=== PATIENT | male | born 1940 | race Caucasian/White ===

== ENCOUNTER 2016-06-06 14:01 | Inpatient (IN) | payer OTHER ==
[2016-06-06] MEDS ORDERED: SODIUM CHLORIDE IV ONE (14:17)
--- NOTE | 2016-06-06 14:21 | PROVIDER DOCUMENTATION ---
HPI-General Adult - General Chief Complaint: General Adult Stated Complaint: In and out of conciousness per family Time Seen by Provider: 06/06/16 14:09 Source: patient, EMS Allergies/Adverse Reactions: Patient Allergies Allergy/AdvReac Type Severity Reaction Status Date / Time No Known Allergies Allergy Verified 03/10/16 09:05 Home Medications: Amlodipine Besylate/Benazepril [Lotrel 10/20 mg Capsule] 1 each PO DAILY Bicalutamide 50 mg PO DAILY 03/10/16 Chlorthalidone 25 mg PO DAILY 03/10/16 Esomeprazole [Nexium] 40 mg PO DAILY 03/10/16 Glyburide/Metformin HCl [Glucovance 2.5/500 mg Tablet] 1 each PO DAILY 03/10/16 LISINOpril [Prinivil] 20 mg PO DAILY 03/10/16 Metoprolol Tartrate [Lopressor] 100 mg PO DAILY 03/10/16 Niacin 500 mg PO DAILY 03/10/16 Simvastatin 80 mg PO DAILY 03/10/16 - History of Present Illness -Gen Adult Nature of Presenting Problems: Pt has a hx of prostate problems has had radiation and surgery leaving him with ileostomy and colostomy . Pt family at bedside reports pt felt bad yesterday and reports today had hard chills and was passing in and out. Upon arrival pt is alert and oriented x 3 Location of Pain/Injury: reports: none Quality of Pain: reports: none Severity: reports: mild Onset/Duration: reports: last night Timing: reports: still present Associated Symptoms: reports: fever/chills, syncope Similar Symptoms Previously?: No Recently seen or treated by another doctor?: No Review of Systems - Adult - REVIEW OF SYSTEMS - ADULT Constitutional: reports: chills. denies: fever, fatique Eyes: reports: no symptoms reported Ears, Nose, Mouth & Throat: reports: no symptoms reported Cardiovascular: reports: syncope. denies: chest pain, edema, irregular heart rate, orthopnea Respiratory: reports: no symptoms reported Gastrointestinal: reports: no symptoms reported Genitourinary: reports: no symptoms reported Musculoskeletal: reports: no symptoms reported Integumentary: reports: no symptoms reported Neurological: reports: syncope. denies: loss of balance, numbness, tremors Psychiatric: reports: no symptoms reported Endocrine: reports: no symptoms reported Hematologic/Lymphatic: reports: no symptoms reported Allergic/Immunologic: reports: no symptoms reported All Other Systems: Reviewed and Negative Past History - Adult - PAST MEDICAL HISTORY-ADULT Review of Records: reports: Nursing Assessment Review, Medications Reviewed Major Childhood Illnesses: reports: denies history Cardiovascular: reports: HTN Genitourinary: reports: other (prostate) Endocrine/Immune: reports: Diabetes - IMMUNIZATION STATUS Childhood Immunizations: See Nurse Assessment Flu Vaccine: See Nurse Assessment Physical Exam-General - PHYSICAL EXAM-ADULT Initial Vital Signs Reviewed: Yes - CONSTITUTIONAL General Appearance: appears well, alert, no apparent distress - EYES Eyes: PERRL/EOMI, pink conjunctivae - HEAD, EARS, NOSE, MOUTH & THROAT HENMT: normocephalic/atraumatic, moist mucous membranes, normal ENT inspection - NECK Neck: non-tender, full range of motion, normal inspection - RESPIRATORY Respiratory: chest non-tender, lungs clear, normal breath sounds - CARDIOVASCULAR Cardiovascular: normal peripheral pulses, regular rate, rhythm, no edema - GASTROINTESTINAL (ABDOMEN) Abdominal Exam: non tender, soft, no organomegaly, no pulsatile mass, other ( ielostomy colostomy) - LYMPHATIC Lymphatic: no adenopathy - MUSCULOSKELETAL Back Exam: normal inspection, no CVA tenderness, no vertebral tenderness Extremity: normal range of motion, non-tender, normal gait - SKIN Integumentary: normal color, normal turgor, warm/dry - NEUROLOGIC Neurologic: grossly normal, no motor/sensory deficits - PSYCHIATRIC Psych/Mental Status: normal mood/affect, normal thought content, normal thought process, oriented x 3 Progress - PLAN OF CARE/RESULTS Progress/Plan/Lab Results: Orders Category Date Time Status BLOOD CULTURE [BLDCUL] Stat Lab 06/06/16 14:16 Uncollected CBC WITH ELECTRONIC DIFF [HEME] Stat Lab 06/06/16 14:15 Ordered CMP [COMPREHENSIVE METABOLIC PANEL] [CHEM] Stat Lab 06/06/16 14:15 Uncollected URINALYSIS W/POSS RFLX CULT [URINALYSIS] Stat Lab 06/06/16 14:15 Uncollected 0.9% Sodium Chloride Inj [Ns] 999 ml Med 06/06/16 14:17 Active IV 500 mls/hr Vital Signs - 24 hr 06/06/16 14:02 Temperature 97.7 F Pulse Rate 91 H Respiratory 20 Rate Blood Pressure 94/49 Laboratory Tests 06/06/16 06/06/16 06/06/16 14:24 14:24 14:26 WBC 17.91 H RBC 3.60 L Hgb 11.3 L Hct 32.7 L MCV 90.8 MCH 31.4 H MCHC 34.6 RDW Std Deviation 12.3 Plt Count 378 MPV 9.5 Immature Gran % (Auto) 1.5 H Neut % (Auto) 96.0 H Lymph % (Auto) 1.3 L [place] % (Auto) 1.1 L Eos % (Auto) 0.0 Baso % (Auto) 0.1 Immature Gran # (Auto) 0.27 H Neut # 17.20 H Lymph # 0.23 L [place] # 0.20 Eos # 0.00 Baso # 0.01 Sodium 133 L Potassium 3.1 L Chloride 94 L Carbon Dioxide 15 L Anion Gap 24 BUN 30 H Creatinine 1.7 H Estimated GFR/1.73 m2 39 BUN/Creatinine Ratio 18 Glucose 86 Calculated Osmolality 272 Calcium 10.1 Total Bilirubin 0.44 AST 22 ALT 5 L Alkaline Phosphatase 178 H Total Protein 7.1 Albumin 2.4 L Globulin 4.7 Albumin/Globulin Ratio 0.5 Urine Source CLEAN CATCH Urine Color ORANGE Urine Turbidity TURBID Urine pH 8.5 Ur Specific [place] 1.017 Urine Protein >600 A Ur Glucose (Stick) NEGATIVE Ur Ketones (Stick) NEGATIVE Urine Blood NEGATIVE Urine Nitrite NEGATIVE Urine Bilirubin NEGATIVE Urobilinogen Dipstick NORMAL Urine Leukocytes LARGE A Urine WBC (Auto) TNTC A Urine RBC (Auto) 20-40 A U Epithel Cells (Auto) <10 Urine Bacteria (Auto) 4+ Urine Crystals TRIPLE PHOS PRESENT Small Round Cells Not Reportable Urine Casts NONE SEEN Urine Yeast-like Cells NONE SEEN - CONSULTS/PCP/HOSPITALIST Notification #1 *Consult/PCP/Hospitalist*: Time Discussed: 15:57 Consult Disposition: Will see in ED, Admit Departure - Departure Time of Disposition Order: 15:56 DIAGNOSIS: UTI (urinary tract infection) Qualifiers: Urinary tract infection type: site unspecified Hematuria presence: without hematuria Qualified Code(s): N39.0 - Urinary tract infection, site not specified Sepsis Qualifiers: Sepsis type: sepsis due to unspecified organism Qualified Code(s): A41.9 - Sepsis, unspecified organism Disposition: ADMITTED INPATIENT 09 Certified Medical Emergency: Emergent Condition: Stable Attestation - Scribe Verification/Attestation Scribe:: Escobar Franco Acting as Scribe for:: Ozzie Bullard Scribe documention review:: This chart was documented by a scribe and accurately reflects the service the provider performed and the decisions made by the provider.
[2016-06-06 14:41] LABS: URINE SOURCE CLEAN CATCH
[2016-06-06 14:47] LABS: BASO% 0.1 % (0.0-0.8); HEMATOCRIT 32.7 % (42.0-52.0); HEMOGLOBIN 11.3 g/dL (14.0-18.0); IMM GRAN# 0.27 X1000 (0.0-0.04); IMM GRAN% 1.5 % (0.0-0.5); LYMPH# 0.23 X1000 (1.2-3.4); LYMPH% 1.3 % (20.5-51.1); MANUAL DIFF NEEDED? NO; MCH 31.4 PG (27-31); MCHC 34.6 g/dL (33-37); MCV 90.8 FL (81-99); MONO% 1.1 % (1.7-9.3); MPV 9.5 FL (7.4-10.4); PLT 378 X1000 (130-400)
[2016-06-06 14:50] LABS: BILIRUBIN URINE NEGATIVE (NEGATIVE); BLOOD URINE NEGATIVE (NEGATIVE); COLOR ORANGE; GLUCOSE URINE NEGATIVE (NEGATIVE); LEUKOCYTES URINE LARGE (NEGATIVE); NITRITE URINE NEGATIVE (NEGATIVE); PH URINE 8.5; PROTEIN URINE >600 mg/dL (NEGATIVE); SP GRAVITY URINE 1.017; TURBIDITY URINE TURBID (CLEAR); UROBILINOGEN URINE NORMAL (NORMAL)
[2016-06-06 14:51] LABS: UR EPITHELIAL CELLS <10 /HPF (<10); URINE BACTERIA 4+ /HPF; URINE CULTURE NEEDED? YES; URINE MICRO REVIEW NEEDED? YES; URINE RBC 20-40 /HPF (<10); URINE WBC TNTC /HPF (<10)
[2016-06-06 15:05] LABS: URINE CRYSTALS TRIPLE PHOS PRESENT
[2016-06-06 15:06] LABS: ALBUMIN 2.4 g/dL (3.5-5.0); CALCIUM 10.1 mg/dL (8.8-10.2); POTASSIUM 3.1 mmol/L (3.5-5.1); TOTAL BILIRUBIN 0.44 mg/dL (0.20-1.00); TOTAL PROTEIN 7.1 g/dL (6.3-8.3)
[2016-06-06 15:10] LABS: URINE CASTS NONE SEEN
[2016-06-06] MEDS ORDERED: GENTAMICIN 60 MG in NS 50 ML IV ONE (15:10)
[2016-06-06] MEDS ORDERED: NS 1,000 ML ONE (15:47)
[2016-06-06] MEDS ORDERED: NS 500 ML ONE (15:59)
[2016-06-06] MEDS ORDERED: NS 500 ML IV ONE (16:02)
[2016-06-06] MEDS ORDERED: ZOFRAN IV PRN (16:50)
--- NOTE | 2016-06-06 16:57 | Diag Imaging Result Document ---
PROCEDURE NAME: CHEST-PORTABLE - 06/06/2016 PORTABLE CHEST X-RAY: COMPARISON: 03/10/2016, 12/23/2011. FINDINGS: Stable coarse peripheral interstitial opacities compatible with pulmonary fibrosis. Heart size remains top normal. No new infiltrates. IMPRESSION: No change from prior.
[2016-06-06] MEDS: NS 1,000 ML IV SCH ×2 (17:00→23:30)
[2016-06-06] MEDS ORDERED: NS 1,000 ML IV SCH (17:45)
[2016-06-06] MEDS ORDERED: KLOR-CON PO ONE (17:52)
[2016-06-06] MEDS: LEVOPHED 8 MG in D5 1/2 NS 250 ML IV SCH (18:00)
--- NOTE | 2016-06-06 18:17 | HISTORY AND PHYSICAL ---
CHIEF COMPLAINT: Generalized weakness and altered mental status, as per family HISTORY OF PRESENT ILLNESS: Mr. Meyer is a 75-year-old male with a past medical history of prostate cancer with end-colostomy and hypertension, who was brought in by the family because of generalized weakness and altered mental status as well. Apparently yesterday this patient was normal but today he started having chills and subjective fever and apparently, as per the family, he had some kind of mental changes; this is why they decided to bring the patient to the emergency department. In the emergency department he was evaluated and he was completely alert and oriented x3. No focal neurological deficits. We found out in the emergency department that this patient has a severe urinary tract infection. Also the blood pressure has been low even though he has been getting fluid resuscitation. This is why we decided to admit this patient to the intensive care unit on the diagnosis of septic shock. This patient will be on IV fluids and pressors and broad spectrum antibiotics. REVIEW OF SYSTEMS: General: Chills, subjective fever. No weight loss. The rest of the 14 point review of systems as per HPI. PAST MEDICAL HISTORY: Hypertension, prostate cancer, questionable diabetes. PAST SURGICAL HISTORY: Colostomy and Daniel's pouch and an ileal conduit on the right side. ALLERGIES: No known allergies. SOCIAL HISTORY: He denies at this moment alcohol, tobacco, and drugs. PHYSICAL EXAMINATION: VITAL SIGNS: Temperature 97.7 degrees, pulse 74, blood pressure 55/36, oxygen saturation 99 on room air, respiratory rate 20. GENERAL: This patient looks chronically ill, cachectic. HEENT: Head normocephalic. No trauma. PERRLA. NECK: Supple. No JVD. No masses. CHEST: Clear to auscultation. No wheezing. No rales. ABDOMEN: He has a colostomy bag on the right side of the abdomen that does not look infected. The abdomen is soft. It is tender to palpation in the suprapubic area. EXTREMITIES: No edema. No clubbing. No cyanosis. Muscle mass decreased. NEUROLOGICAL: The patient was alert and oriented x3. No focal neurological deficits. LABORATORY: WBC 17.9, hemoglobin 11.3, hematocrit 32.7, platelet 378,000. Sodium 133, potassium 4.1, chloride 94, bicarbonate 15, BUN 30, creatinine 1.7. Urinalysis: Urine leukocytes large. Urine WBC too numerous to count. Urine red blood cells 20-40. Bacteria 4+. ASSESSMENT AND PLAN: 1. Septic shock. This patient will be admitted to the ICU. We will place this patient on IV fluids, broad-spectrum antibiotics, vasopressors. Continue monitoring. We are going to hold the blood pressure medication for now because this patient is having low blood pressure. We will get a urine culture and also blood culture. 2. Hypertension. At this moment this patient is hypotensive. We will hold the blood pressure medication. 3. History of prostate cancer with colostomy, to monitor. 4. Questionable diabetes. The blood sugar is normal today. Will monitor.
[2016-06-06] MEDS: PROTONIX IV SCH (18:24)
[2016-06-06] MEDS: SODIUM CHLORIDE 0.9% INJ SCH (18:24)
[2016-06-06] MEDS: ZOSYN 3.375 GM/NS 50 ML IV SCH ×2 (18:24→23:30)
[2016-06-06] MEDS: HEPARIN SUBQ SCH (20:42)
[2016-06-07] MEDS: NS 1,000 ML IV SCH ×3 (03:29→17:04)
[2016-06-07] MEDS: TYLENOL PO PRN (05:43)
[2016-06-07] MEDS: ZOSYN 3.375 GM/NS 50 ML IV SCH ×4 (05:43→23:45)
[2016-06-07] MEDS: LEVOPHED 8 MG in D5 1/2 NS 250 ML IV SCH ×2 (06:11→18:02)
[2016-06-07] MEDS ORDERED: VANCOMYCIN IV PER PHARMACY MISC SCH (06:15)
[2016-06-07 06:34] LABS: BASO% 0.5 % (0.0-0.8); EOS# 0.35 X1000 (0.0-0.7); EOS% 3.3 % (0.0-10.0); HEMOGLOBIN 12.3 g/dL (14.0-18.0); IMM GRAN# 0.08 X1000 (0.0-0.04); IMM GRAN% 0.8 % (0.0-0.5); LYMPH# 1.83 X1000 (1.2-3.4); LYMPH% 17.2 % (20.5-51.1); MANUAL DIFF NEEDED? YES; MCH 30.8 PG (27-31); MCHC 33.2 g/dL (33-37); MCV 92.7 FL (81-99); MONO# 1.49 X1000 (0.11-0.59); MPV 9.5 FL (7.4-10.4); NEUT% 64.2 % (42.2-75.2); PLT 377 X1000 (130-400); RBC 3.99 XMIL (4.7-6.1)
[2016-06-07 06:46] LABS: BANDS 12 % (0-1); LYMPHS 20 % (21-51); MONO 12 % (1-9)
[2016-06-07 06:58] LABS: ALBUMIN 2.7 g/dL (3.5-5.0); CALCIUM 9.7 mg/dL (8.8-10.2); POTASSIUM 4.5 mmol/L (3.5-5.1); TOTAL BILIRUBIN 0.56 mg/dL (0.20-1.00); TOTAL PROTEIN 7.2 g/dL (6.3-8.3)
[2016-06-07] MEDS ORDERED: VANCOMYCIN 2,000 MG in NS 500 ML IV ONE (08:00)
[2016-06-07] MEDS: PRAVACHOL PO SCH (09:16)
[2016-06-07] MEDS: NIACIN PO SCH (09:16)
[2016-06-07] MEDS: HEPARIN SUBQ SCH ×2 (09:16→20:40)
--- NOTE | 2016-06-07 10:22 | PROGRESS NOTE ---
DATE: 06/07/2016 SUBJECTIVE: This patient states that he is feeling much better. He is tolerating p.o. He denies any nausea, vomiting, fever, or chills, but he said that he has been sweating a lot. OBJECTIVE: Vital Signs: Temperature 97.9 degrees, pulse 78, respiratory rate 23, blood pressure 87/50, oxygen saturation 97% on room air. HEENT: Head normocephalic. No trauma. PERRLA. Neck: Supple. No JVD. No masses. Chest: Clear to auscultation. No wheezing. No rales. Abdomen: He has a colostomy bag on the right side of the abdomen that does not look infected. The abdomen is soft. It is tender to palpation in the suprapubic area. Extremities: No edema. No clubbing. No cyanosis. Muscle mass decreased. Neurological: The patient is alert and oriented x3. No focal neurological deficits. LABORATORY: WBC 10.6, hemoglobin 12.3, hematocrit 37, platelets 377,000, bands 12. Sodium 133, potassium 4.5, chloride 97, bicarbonate 14, BUN 32, creatinine 1.8, glucose 67, calcium 9.7, albumin 2.7. ASSESSMENT AND PLAN: 1. Septic shock. This patient is still in the ICU. This patient is still on vasopressors. We will continue with the broad-spectrum antibiotics. We have a positive urine culture that showed gram-negative rods. Blood culture has been negative so far. 2. Hypertension. At this moment this patient is hypotensive. The blood pressure medication was held. He is on pressors. 3. History of prostate cancer with colostomy. Apparently this patient also has metastasis, to monitor. 4. Questionable diabetes. The blood sugar today is normal. Will monitor. 5. Deconditioning. This patient looks cachectic and chronically ill. I will put this patient on physical therapy and I will ask the optical instruments supervisor to evaluate this patient.
[2016-06-07] MEDS ORDERED: CALMOSEPTINE OINTMENT TOP PRN (11:07)
[2016-06-07] MEDS: PROTONIX IV SCH (17:04)
[2016-06-07] MEDS: SODIUM CHLORIDE 0.9% INJ SCH (17:04)
[2016-06-08] MEDS: NS 1,000 ML IV SCH ×3 (04:26→20:05)
[2016-06-08] MEDS: ZOSYN 3.375 GM/NS 50 ML IV SCH ×4 (05:30→22:47)
[2016-06-08 08:18] LABS: BASO% 0.1 % (0.0-0.8); EOS# 0.11 X1000 (0.0-0.7); EOS% 0.7 % (0.0-10.0); HEMATOCRIT 29.5 % (42.0-52.0); HEMOGLOBIN 10.1 g/dL (14.0-18.0); IMM GRAN# 0.18 X1000 (0.0-0.04); IMM GRAN% 1.2 % (0.0-0.5); LYMPH# 0.84 X1000 (1.2-3.4); LYMPH% 5.4 % (20.5-51.1); MANUAL DIFF NEEDED? YES; MCH 30.9 PG (27-31); MCHC 34.2 g/dL (33-37); MCV 90.2 FL (81-99); MONO# 0.74 X1000 (0.11-0.59); MONO% 4.7 % (1.7-9.3); MPV 9.4 FL (7.4-10.4); NEUT% 87.9 % (42.2-75.2); PLT 223 X1000 (130-400); RBC 3.27 XMIL (4.7-6.1)
[2016-06-08 08:21] LABS: CALCIUM 8.7 mg/dL (8.8-10.2); POTASSIUM 3.3 mmol/L (3.5-5.1)
[2016-06-08] MEDS: HEPARIN SUBQ SCH ×2 (09:08→20:05)
[2016-06-08] MEDS: NIACIN PO SCH (09:08)
[2016-06-08] MEDS: PRAVACHOL PO SCH (09:08)
[2016-06-08] MEDS ORDERED: KLOR-CON PO ONE (09:11)
[2016-06-08 09:41] LABS: BANDS 8 % (0-1); LYMPHS 6 % (21-51); MONO 2 % (1-9)
[2016-06-08] MEDS: TYLENOL PO PRN ×2 (11:45→17:52)
--- NOTE | 2016-06-08 11:52 | PROGRESS NOTE ---
DATE: 06/08/2016 SUBJECTIVE: This patient states that he is feeling much better. He is tolerating p.o. He is able to ambulate with assistance. He denies nausea, vomiting, diarrhea, or constipation. OBJECTIVE: Vital Signs: Temperature 97 degrees, pulse 71, respiratory rate 15, blood pressure 109/57, and oxygen saturation 99 on room air. HEENT: Head normocephalic. No trauma. PERRLA. Neck: Supple. No JVD. No masses. Chest: Clear to auscultation. No wheezing. No rales. Abdomen: He has a colostomy bag on the right side of the abdomen that does not look infected. The abdomen is soft. It is tender to palpation in the suprapubic area. Extremities: No edema. No clubbing. No cyanosis. Muscle mass decreased. Neurological Examination: The patient is alert and oriented x3. No focal neurological deficits. Laboratory: WBC 15.6, hemoglobin 10.1, hematocrit 29.5, platelets 233,000. Sodium 135, potassium 3.3, chloride 103, bicarbonate 18, BUN 29, creatinine 1.5, and calcium 8.7. ASSESSMENT AND PLAN: 1. Septic shock. This patient is still in the intensive care unit. He is still on vasopressors but he is getting better. We will continue with broad spectrum antibiotics. We have a positive urine culture that showed gram-negative rods. Blood culture has been negative so far. 2. Hypertension. At this moment, this patient is borderline hypotensive. We will continue monitoring. 3. History of prostate cancer with colostomy. Apparently, this patient also has metastases. We will monitor. 4. Questionable diabetes. Continue monitoring. We will monitor. 5. Deconditioning. This patient looks cachectic and chronically ill. This patient is on physical therapy. We will continue monitoring.
[2016-06-08] MEDS: PROTONIX IV SCH (16:46)
[2016-06-08] MEDS: SODIUM CHLORIDE 0.9% INJ SCH (16:46)
[2016-06-08] MEDS: NORCO-7.5 PO PRN (20:42)
[2016-06-09] MEDS: ZOSYN 3.375 GM/NS 50 ML IV SCH (05:12)
[2016-06-09] MEDS: NS 1,000 ML IV SCH ×3 (05:13→17:49)
[2016-06-09 05:24] LABS: BASO% 0.1 % (0.0-0.8); EOS# 0.09 X1000 (0.0-0.7); HEMOGLOBIN 9.6 g/dL (14.0-18.0); IMM GRAN# 0.14 X1000 (0.0-0.04); IMM GRAN% 1.5 % (0.0-0.5); LYMPH# 0.48 X1000 (1.2-3.4); LYMPH% 5.2 % (20.5-51.1); MANUAL DIFF NEEDED? YES; MCH 30.6 PG (27-31); MCHC 34.3 g/dL (33-37); MCV 89.2 FL (81-99); MONO# 0.35 X1000 (0.11-0.59); MONO% 3.8 % (1.7-9.3); MPV 9.8 FL (7.4-10.4); NEUT% 88.4 % (42.2-75.2); PLT 178 X1000 (130-400); RBC 3.14 XMIL (4.7-6.1)
[2016-06-09 06:00] LABS: BANDS 14 % (0-1); LYMPHS 4 % (21-51); MONO 2 % (1-9)
[2016-06-09 06:12] LABS: CALCIUM 7.8 mg/dL (8.8-10.2); POTASSIUM 3.7 mmol/L (3.5-5.1)
[2016-06-09] MEDS ORDERED: VANCOMYCIN 1,500 MG in NS 250 ML IV SCH (08:00)
[2016-06-09] MEDS: PRAVACHOL PO SCH (08:04)
[2016-06-09] MEDS: HEPARIN SUBQ SCH ×2 (08:04→22:13)
[2016-06-09] MEDS: NIACIN PO SCH (08:05)
[2016-06-09] MEDS: NORCO-7.5 PO PRN ×4 (09:16→22:34)
[2016-06-09] MEDS: TYLENOL PO PRN (11:06)
[2016-06-09] MEDS: MAXIPIME 2 GM/NS 100 ML IV SCH ×2 (12:09→22:13)
--- NOTE | 2016-06-09 13:12 | PROGRESS NOTE ---
DATE: 06/09/2016 SUBJECTIVE: This patient states that he is feeling better. Today, he has been having chills. I will ask for a new set of blood culture and urine culture. He denies nausea, vomiting, diarrhea, constipation. He is not on pressors at this moment. His vital signs are stable. I will transfer this patient to the medical floor. OBJECTIVE: Vital Signs: Temperature 97.5 degrees, pulse 88, respiratory rate 19, blood pressure 133/70. O2 saturation 98% on room air. HEENT: Head normocephalic. No trauma. PERRLA. Neck: Supple. No JVD. No masses. Chest: Clear to auscultation. No wheezing. No rales. Abdomen: He has a colostomy bag on the right side of the abdomen that does not look infected. The abdomen is soft. Mild tenderness to palpation in the suprapubic area. Extremities: No edema. No clubbing. No cyanosis. Muscle mass decreased. Neurological: The patient is alert and oriented x3. No focal neurological deficits. LABORATORY: WBC 9.2, hemoglobin 9.6, hematocrit 28. Sodium 131, potassium 3.7, chloride 103, bicarbonate 16, BUN 25, creatinine 1.3. Calcium 7.8. Glucose 93. ASSESSMENT AND PLAN: 1. Septic shock, resolved. This patient will be transferred to the medical floor. He is not on vasopressors. I will consult the Infectious Disease Department. He has a positive blood culture result for a Staphylococcus aureus and Proteus vulgaris and also he has any urine culture that is positive for Providencia rustigianii. We will continue with the same management for now. 2. Hypertension. At this moment the blood pressure is controlled. We will continue monitoring. 3. History of prostate cancer with colostomy. Apparently this patient also has metastasis. We will monitor. 4. Deconditioning. This patient looks cachectic and chronically ill. I will continue this patient on physical therapy. We will continue monitoring.
--- NOTE | 2016-06-09 14:08 | CONSULTATION ---
DATE OF CONSULTATION: 06/09/2016 CONCLUSION: The patient has a Providencia urinary tract infection and a Staph aureus and Proteus bacteremia. The exact origin of the bacteremia is uncertain to me at this time. Since the urine isolate is different from the blood isolates, the blood isolates did not arise from the urinary tract. The patient does have some interstitial opacities, but the radiologist feels this is most compatible with pulmonary fibrosis rather than pneumonia. The patient does not have any long-term intravenous access device in place such as a Port-A-Cath or a PICC, and he got ill at home before he came in the hospital, so there was not an IV site that could be the origin. RECOMMENDATIONS: I have switched the patient from his current antibiotics to cefepime 2 g IV every 8 hours. In addition, I have ordered a CT scan of the abdomen and pelvis to see if we can find some abnormality that would predispose the patient to become bacteremic. DISCUSSION: The patient was initially admitted to the hospital with an altered mental status. He was having chills and was very weak. His blood cultures are positive for an oxacillin-sensitive Staph aureus and Proteus and the urine culture is positive for Providencia. In talking to the patient now, he has not been having any cough. He did not have any abdominal pain. LABORATORY STUDIES: Show a CBC with a white count of 9210, hemoglobin 9.6, and platelet count 178,000. Creatinine is 1.3. The GFR is 54. AST is 49. Chest x-ray shows interstitial opacities compatible with pulmonary fibrosis. REVIEW OF SYSTEMS: Eyes and ears: Patient denies difficulty hearing or seeing. Neck: No stiffness. Respiratory: No cough or dyspnea. Cardiovascular: No chest pain or palpitations. GI: No nausea or vomiting. No abdominal pain. The patient does have a colostomy. : Patient does have an ileal conduit. Endocrine: The patient tells me that he does have diabetes, but he does not have thyroid disease. Neurologic: No motor or sensory deficit. No seizure. Integument: No rash. The remainder of the patient's review of systems was completed and was negative. PAST MEDICAL HISTORY: Previous hospitalizations and operations: The patient has had a total shoulder arthroplasty and 2 laminectomies. He had surgery for prostate cancer, including cryosurgery and radiation therapy. He also has been admitted once for atelectasis and pneumonia. Medical Diseases: Positive for prostate cancer, diabetes mellitus and hypertension. Hyperlipidemia. Infectious disease history: Positive for pneumonia. Negative for UTI. FAMILY HISTORY: Positive for hypertension and myocardial infarction. SOCIAL HISTORY: [place] lives [place]. Does not have any pets. He is . He does not smoke cigarettes. He is retired. He does drink alcoholic beverages. He does not abuse drugs. ALLERGIES: The computer record on the patient indicates that he does not have any drug allergies. HOME MEDICATIONS: Include the following: Pravastatin, niacin, metoprolol, lisinopril, glyburide, Nexium, chlorthalidone, amlodipine/benazepril, bicalutamide. PHYSICAL EXAMINATION: Vital Signs: Temperature is 97.5, pulse 88, respirations 19, blood pressure 133/70. Generally: This is an ill-appearing, elderly male. He is in no acute distress. HEENT: No drainage noted from the nose or ears. The patient is edentulous. There were no white patches in the mouth. Neck: No meningismus. Thorax: No increased AP diameter. Lungs: Clear to auscultation. Cardiovascular: Heart rate is regular. Peripheral pulses were diminished. Abdomen: Soft and nontender. The patient has an ileal conduit and colostomy in place. Both are functional. Neurologic: Patient is awake. He can move his extremities. There is no tremor. His sensation was intact to touch. His memory, as regarding his medical history was slightly diminished. Thank you for the consult.
--- NOTE | 2016-06-09 14:53 | Diag Imaging Result Document ---
PROCEDURE NAME: ABDOMEN/PELVIS W/WO CONTRAST - 06/09/2016 CT ABDOMEN AND PELVIS WITHOUT AND WITH INTRAVENOUS CONTRAST: A CT dose reduction protocol was used. COMPARISON: 03/03/2016. FINDINGS: On the noncontrast exam, there is a large obstructing stone at the right distal ureter just inside the muscular body wall. This stone measures about 13 x 7 mm. On the contrast-enhanced exam, there is severe fibrosis in the lung bases. This is stable from prior. There are new small pleural effusions bilaterally. Stable hiatal hernia. There is severe right hydronephrosis and hydroureter due to the obstructing renal stone. No significant left- sided obstruction. Stable left sided cyst. The liver, gallbladder, spleen, pancreas, and adrenals are unremarkable. Stable right lower quadrant urostomy and left lower quadrant colostomy. Stable extensive parastomal herniation at the colostomy. No bowel obstruction. No free air or free fluid. The rectal stump is unremarkable. Stable small nondisplaced fracture at the left inferior pubic ramus. There are numerous grossly stable bony metastases. IMPRESSION: 1. Severe right distal ureter obstruction due to migration of the large right renal stone to the distal ureter at about the level of the muscular body wall. Severe right hydronephrosis. 2. New bilateral pleural effusions. 3. Other findings are stable from prior. [facility]
[2016-06-09] MEDS: PROTONIX IV SCH (17:05)
[2016-06-09] MEDS: SODIUM CHLORIDE 0.9% INJ SCH (17:05)
[2016-06-10] MEDS: MAXIPIME 2 GM/NS 100 ML IV SCH ×2 (05:23→18:07)
[2016-06-10] MEDS: NORCO-7.5 PO PRN (05:25)
[2016-06-10 06:45] LABS: BASO% 0.3 % (0.0-0.8); EOS# 0.24 X1000 (0.0-0.7); EOS% 2.6 % (0.0-10.0); HEMATOCRIT 30.2 % (42.0-52.0); HEMOGLOBIN 10.7 g/dL (14.0-18.0); IMM GRAN# 0.72 X1000 (0.0-0.04); IMM GRAN% 7.7 % (0.0-0.5); LYMPH% 10.7 % (20.5-51.1); MANUAL DIFF NEEDED? YES; MCHC 35.4 g/dL (33-37); MCV 87.5 FL (81-99); MONO# 0.73 X1000 (0.11-0.59); MONO% 7.8 % (1.7-9.3); MPV 9.9 FL (7.4-10.4); NEUT% 70.9 % (42.2-75.2); PLT 178 X1000 (130-400); RBC 3.45 XMIL (4.7-6.1)
[2016-06-10 06:49] LABS: AGAP 12; BUN 17 mg/dL (8-22); CALCIUM 8.6 mg/dL (8.8-10.2); CHLORIDE 101 mmol/L (98-107); COSMO 267; POTASSIUM 3.6 mmol/L (3.5-5.1); SODIUM 132 mmol/L (136-145); TCO2 19 mmol/L (25-35)
[2016-06-10 07:06] LABS: BANDS 6 % (0-1); EOS 2 % (1-10); LYMPHS 14 % (21-51); MONO 4 % (1-9)
--- NOTE | 2016-06-10 09:28 | PROGRESS NOTE ---
DATE: 06/10/2016 PRESENT ILLNESS: The patient has a Staph aureus and Proteus bacteremia and a Providencia urinary tract infection. In addition, on CT scan the patient was found to have a blockage in the distal ureter of his urostomy, and it had a resulting hydronephrosis. I am sure this is where the patient's urinary tract infection occurred. I am not exactly certain where the Staph aureus and Proteus came from since there are different organisms than what was in the urine. It could possibly be that some organisms from around the ostomy also got up into the ureter and with the obstruction then became bacteremic. MEDICATIONS: The patient is on cefepime to which all of the organisms are susceptible. PHYSICAL EXAMINATION: Vital Signs: Temperature is 97.7 degrees, pulse 61, respirations 16, blood pressure 143/79. General: This is an ill-appearing, elderly male, who is in no acute distress. Lungs: Clear to auscultation. Cardiovascular: Regular heart rate. Abdomen: Soft and nontender. There is a right-sided urostomy in place and a left-sided colostomy in place. Both are functional. LAB AND X-RAY: The CBC for today shows a white count of 9370, hemoglobin 10.7, and platelet count 178,000. Creatinine is 1.0. GFR is greater than 60. The CT scan of the abdomen showed, as mentioned above, an obstructing large stone in the distal ureter on the right side. ASSESSMENT AND PLAN: I called Dr. Rodriges who has seen the patient before, and he said that the patient will require a right-sided nephrostomy tube. He told me that I should call the radiologist to get that scheduled. Furthermore, he said that if the radiologist cannot do it here, that the patient will need to be transferred to [facility]. COMORBIDITY: He had prostate cancer and had radiation and other therapies which necessitated him having the ileostomy and the colostomy. ADDENDUM: I called Dr. Ortiz (radiologist) and he agreed to put in a R nephrostomy tube. [facility]
[2016-06-10] MEDS ORDERED: CARBOCAINE PF 2% ONE (10:06)
[2016-06-10] MEDS ORDERED: HEPARIN ONE (10:06)
[2016-06-10] MEDS ORDERED: NS 250 ML ONE (10:07)
[2016-06-10] MEDS ORDERED: FENTANYL ONE (12:39)
[2016-06-10] MEDS ORDERED: DIPRIVAN 1% ONE (12:40)
[2016-06-10] MEDS ORDERED: XYLOCAINE-MPF 2% ONE (12:46)
[2016-06-10] MEDS ORDERED: LR 1,000 ML ONE (12:46)
[2016-06-10] MEDS ORDERED: ANESTHESIA PB SET 88 IN 5742 ONE (12:46)
[2016-06-10] MEDS: MORPHINE ONE ×5 (12:53→13:18)
[2016-06-10 14:41] LABS: PROTIME 10.6 Seconds (9.2-11.7); PTT 27.8 Seconds (22.0-36.0)
--- NOTE | 2016-06-10 16:35 | ECHO REPORT ---
ORDER DATE: 06/09/2016 STUDY: This is a 2D, M-mode, color Doppler exam. This is a technically satisfactory study. INTERPRETATION: 1. The left ventricle is normal in size with mild concentric hypertrophy and with preserved overall systolic function. Estimated left ventricular ejection fraction is somewhere around 60%. 2. The left and right atria are intact. The right ventricle has preserved size and function. 3. There is a physiologic pericardial effusion. This is of no hemodynamic significance. 4. The aortic valve is trileaflet. The tip of the noncoronary cusp of the aortic valve is thickened and echodense. There appears to be a small mobile structure originating from the aortic side of this valve. Cannot exclude vegetation as an etiology. There is a central jet of mild, bordering on moderate aortic insufficiency. 5. The mitral valve is intact. The tricuspid valve is intact. 6. There is no significant mitral regurgitation. There is mild tricuspid regurgitation. There is mild pulmonic insufficiency. 7. Peak pulmonary artery pressure could not be adequately assessed in this study. 8. No obvious intracardiac masses or thrombi are noted. 9. Consider transesophageal echocardiography if clinically indicated to better assess the aortic valve structure.
[2016-06-10 17:13] LABS: AGAP 14; BUN 17 mg/dL (8-22); CALCIUM 8.6 mg/dL (8.8-10.2); CHLORIDE 100 mmol/L (98-107); COSMO 270; MAGNESIUM 1.3 mg/dL (1.5-2.7); POTASSIUM 3.7 mmol/L (3.5-5.1); SODIUM 134 mmol/L (136-145); TCO2 20 mmol/L (25-35)
[2016-06-10] MEDS ORDERED: MAGNESIUM SULFATE 2 GM/S.W.I. 50 ML IV ONE (18:00)
--- NOTE | 2016-06-10 18:04 | PROGRESS NOTE ---
DATE: 06/10/2016 SUBJECTIVE: The patient states that he is feeling fine. He is a little bit somnolent because of the surgery today. He has a CT scan that has a blockage in the distal and hydronephrosis on the right side. Probably this is the source of infection. Infectious Disease Department communicated with Dr. Rodriges and he recommended to put a right side nephrostomy tube. At this moment this patient is resting comfortably on the bed. OBJECTIVE: Vital Signs: Pulse 113, respiratory rate 30, blood pressure 143/69. HEENT: Head normocephalic. No trauma. PERRLA. Neck: Supple. No JVD. No masses. Chest: Clear to auscultation. No wheezing. No rales. Cardiovascular: Irregular rate. Abdomen: He has a colostomy bag on the right side of the abdomen and that does not look infected. The abdomen is soft, is mild tenderness to palpation in the suprapubic area. He has a new right nephrostomy tube placed. No sign of bleed. Extremities: No edema. No clubbing. No cyanosis. Muscle mass decreased. Neurological: The patient is alert but somnolent and he is oriented x3. No focal neurological deficits. LABORATORY: WBC 9.3, hemoglobin 10.7, hematocrit 30.2, platelet 178,000. Sodium 134, potassium 3.7, chloride 20,, BUN 17, creatinine 0.1, glucose 108, calcium 8.6, magnesium 1.3. ASSESSMENT AND PLAN: 1. Septic shock. This patient's blood pressure and heart rate has been stable. He is on the medical floor. He is not on vasopressors. Infectious Disease Department is monitoring this patient. The septic shock most likely secondary to urinary tract infection. 2. Severe right distal ureter obstruction and severe right hydronephrosis is status post right nephrostomy tube placed placement. Will monitor. We will continue with the antibiotics. Urology department is on board. 3. Urinary tract infection. We have a positive culture for Providencia rustigianii, infectious Disease Department is following this patient. Will continue following their recommendation. 4. Bacteremia. Again we will continue with the same treatment. We have a positive result for the Staphylococcus aureus and Proteus vulgaris. Will monitor. 5. Hypertension. Will monitor, at this moment he is having little mild high blood pressure. It could be likely related to pain. 6. History of prostate cancer with colostomy. Apparently this patient also has metastases. We will monitor. 7. Deconditioning. This patient looks cachectic and chronically ill. I will continue this patient on physical therapy. We will continue monitoring. 8. Cardiac arrhythmia, I will checked the BMP and also magnesium, the magnesia level was low. I will give him magnesium and I will consult cardiology.
[2016-06-10] MEDS: NS 1,000 ML IV SCH (18:05)
[2016-06-10] MEDS: HEPARIN SUBQ SCH (18:05)
[2016-06-10] MEDS: PRAVACHOL PO SCH (18:06)
[2016-06-10] MEDS: NIACIN PO SCH (18:07)
[2016-06-10] MEDS: PROTONIX IV SCH (18:07)
[2016-06-11] MEDS: MAXIPIME 2 GM/NS 100 ML IV SCH ×4 (00:40→20:41)
[2016-06-11] MEDS: HEPARIN SUBQ SCH ×3 (00:42→20:42)
[2016-06-11] MEDS: NORCO-7.5 PO PRN ×3 (02:08→17:17)
[2016-06-11] MEDS: NS 1,000 ML IV SCH ×2 (06:35→20:42)
[2016-06-11 06:53] LABS: BASO% 0.2 % (0.0-0.8); EOS# 0.16 X1000 (0.0-0.7); EOS% 1.5 % (0.0-10.0); HEMATOCRIT 28.6 % (42.0-52.0); HEMOGLOBIN 10.1 g/dL (14.0-18.0); IMM GRAN# 0.83 X1000 (0.0-0.04); LYMPH# 1.27 X1000 (1.2-3.4); LYMPH% 12.2 % (20.5-51.1); MANUAL DIFF NEEDED? YES; MCH 31.3 PG (27-31); MCHC 35.3 g/dL (33-37); MCV 88.5 FL (81-99); MONO# 0.79 X1000 (0.11-0.59); MONO% 7.6 % (1.7-9.3); NEUT% 70.5 % (42.2-75.2); PLT 154 X1000 (130-400); RBC 3.23 XMIL (4.7-6.1)
[2016-06-11 07:10] LABS: AGAP 13; BUN 17 mg/dL (8-22); CALCIUM 8.7 mg/dL (8.8-10.2); CHLORIDE 100 mmol/L (98-107); COSMO 268; POTASSIUM 3.1 mmol/L (3.5-5.1); SODIUM 133 mmol/L (136-145); TCO2 20 mmol/L (25-35)
[2016-06-11 07:55] LABS: BANDS 12 % (0-1); LYMPHS 14 % (21-51); MONO 8 % (1-9)
[2016-06-11] MEDS ORDERED: STERILE WATER INJ. ONE (08:59)
[2016-06-11] MEDS: NIACIN PO SCH (10:19)
[2016-06-11] MEDS: PRAVACHOL PO SCH (10:19)
[2016-06-11] MEDS ORDERED: KLOR-CON PO ONE (12:47)
--- NOTE | 2016-06-11 13:25 | CONSULTATION ---
DATE OF CONSULTATION: 06/11/2016 ATTENDING PHYSICIAN: Dr. Kevin Hoff. REFERRING PHYSICIAN: Dr. Andres Hill, HISTORY OF PRESENT ILLNESS: This 75-year-old male was admitted with failure to thrive, weight loss, and fevers. He probably had sepsis syndrome secondary to a urinary source. The patient has a history of prostate cancer. He underwent radiation therapy in 2004. His PSA increased, and he then underwent cryotherapy in 2005. 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 He underwent end colostomy with a Daniel pouch and ileostomy. The patient, again, had recurrence and was noted to have multiple bony metastasis. He was started on Lupron and Xtandi has been added. The patient states he has not been taking the Xtandi since his admission. The patient's CT scan revealed bilateral renal stones with a large stone in the right mid ureter causing significant right hydronephrosis. The patient did not know he had kidney stones. He had a right percutaneous nephrostomy tube placed to decompress the kidney, and he states he is feeling much better. His PSA in 2015 was 4.7. He states that his Lupron injection is due in early 06/2016. He is followed by Dr. Casey. PAST MEDICAL HISTORY: Pulmonary fibrosis, gastroesophageal reflux disease, hypertension, diabetes, elevated cholesterol. CURRENT MEDICATIONS: Documented on the face sheet. PAST SURGICAL HISTORY: As noted in the HPI. Rectal exam under anesthesia in . The patient states he cannot tolerate a rectal exam without anesthesia. SOCIAL HISTORY: Occasional alcohol use. Previously smoked cigarettes, but none for many years. ALLERGIES: No known drug allergies. REVIEW OF SYSTEMS: He states he usually does well. He states he has been having weight loss. He denies any bone pain. He states he had some pressure in the right side but nothing that causes significant pain. He denies any problems with strokes or seizures. PHYSICAL EXAMINATION: GENERAL: A cachectic, [id number] age appearing, white male, who is oriented in all ways and cooperative. HEENT: Normal for age. LUNGS: Clear. CARDIOVASCULAR: Regular rate and rhythm. ABDOMEN: Scaphoid, soft. Colostomy bag and ileostomy bag in place and draining well. No abdominal masses. No hepatosplenomegaly. GENITOURINARY: Uncircumcised male with significant phimosis. Both testes down and atrophic. No inguinal hernias. 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 RECTAL: Patient declines rectal exam. EXTREMITIES: No clubbing, cyanosis, or edema. NEUROLOGIC: No focal deficits. LABORATORY EVALUATION: He has a white count of 10.43, hemoglobin 10.1, hematocrit 28.6, platelets 154,000. Serum electrolytes have a sodium of 133, potassium 3.1, chloride 100, bicarb 20. BUN 17, creatinine 1.0. The right percutaneous tube is in place draining clear urine. IMPRESSION: 1. Stage T4 prostate cancer. 2. Right ureteral stone that caused right hydroureteronephrosis. 3. Sepsis syndrome probably due to a urinary source. Recommend: Restart Xtandi at home dosage(160 mg per day). The kidney needs to be decompressed and the infection completely cleared before stone intervention is attempted. In several weeks, we will schedule shockwave lithotripsy to break up the stone. If that is not successful, he will need right percutaneous nephrostolithotomy. We will follow. [facility]
--- NOTE | 2016-06-11 16:29 | CONSULTATION ---
DATE OF CONSULTATION: 06/11/2016 REASON FOR CONSULTATION: Evaluate for endocarditis. HISTORY: The patient is a 75-year-old gentleman, who is admitted with what appears to be urosepsis. The patient states he had been in his usual state of health until approximately last Monday when he developed some chills. He was very weak and felt ill. He was admitted to the hospital. He has not been febrile, but has been mildly hypotensive when he was originally admitted. This appears to have stabilized. During this admission the patient has had blood cultures; 2 of 2 blood cultures have come back positive for Staph aureus and Proteus vulgaris. It is suspected that this may be a urinary source. The patient has a previous history of metastatic prostate cancer. He has had urinary issues with urinary retention. Apparently now has what appears to be an obstructed ureter with right hydronephrosis. This is being evaluated by urology. The patient has previous history of cardiac stent; this was placed several years ago. Denies other cardiac issues. PAST MEDICAL HISTORY: Patient has a history of hypertension, treated medically. There is no documented history of diabetes or known dyslipidemia. No documented pulmonary disease and no documented thyroid disease. No documented previous renal disease. The patient has had previous colostomy and ileal conduit; this was related to cryosurgery that was performed on the prostate region several years ago with some degree of colon damage. SOCIAL HISTORY: No tobacco, alcohol, or illicit drug use. FAMILY HISTORY: Noncontributory. REVIEW OF SYSTEMS: General: Patient has been in good health otherwise up until this admission. HEENT: No headache. No visual abnormalities. Chest: No palpitations, no orthopnea. Abdomen: No abdominal pain. No diarrhea. No constipation. Extremities: No leg pain. No swelling. Weakness upon presentation, which is resolving. PHYSICAL EXAMINATION: General: This is a well-developed male. He is awake and alert. He answers questions appropriately. HEENT: Exam is benign. Neck: Supple. Chest: Bilateral breath sounds, which are clear. Cardiovascular: Reveals a regular rate and rhythm. There is a very faint diastolic murmur noted. Abdomen: Positive bowel sounds. Nontender, nondistended. Extremities: No edema. There are no peripheral signs of embolization. DIAGNOSTIC DATA: I have reviewed an echocardiogram. There is moderate aortic insufficiency. The noncoronary cusp of the aortic valve is thickened and cannot exclude small vegetation as seen on transthoracic echo. LABORATORY WORK: White count currently is 10, hemoglobin and hematocrit is 10 and 28, platelet count is 154. Sodium 133, potassium 3.1, chloride 100, BUN 17, creatinine 1, calcium is 8.7, AST 49, ALT 13. Again, blood cultures currently are growing out Staph aureus and Proteus vulgaris 2 of 2. Urine culture is positive for Providencia rustigianii. IMPRESSION: Sepsis: The patient is certainly at risk for endocarditis. His new criteria is somewhat questionable. If this were a true vegetation on the aortic valve in the setting of Staphylococcus bacteremia, I would consider that to be 2 major criteria making the diagnosis. The patient is currently on appropriate antibiotic therapy and is being followed by infectious disease. Prior to discharge, I would recommend transesophageal echocardiogram to better define aortic valve anatomy, structure and function. Further recommendations to follow.
--- NOTE | 2016-06-11 16:38 | PROGRESS NOTE ---
DATE: 06/11/2016 SUBJECTIVE: The patient states that she is feeling fine, is not complaining of pain. At the moment of my evaluation he was on physical therapy. Dr. Rodriges evaluated this patient and we are going to restart Xtandi at his home dose because of his prostate cancer. OBJECTIVE: Vital Signs: Temperature 97.4 degrees, pulse 73, respiratory rate 18, blood pressure 122/61, O2 saturation 98 on room air. HEENT: Head normocephalic. No trauma. PERRLA. Neck: Supple. No JVD. No masses. Chest: Clear to auscultation. No wheezing. No rales. Cardiovascular: Irregular rate. No murmurs. Abdomen: He has a colostomy bag on the right side of the abdomen and it does not look infected, also he has a right nephrostomy tube placed. The abdomen is soft with mild tenderness to palpation in the suprapubic area. No signs of bleed. Extremities: No edema. No clubbing. No cyanosis. Muscle mass decreased. Neurological: The patient is alert and oriented x3. No focal neurological deficits. LABORATORY: WBC 10.4, hemoglobin 10.1, hematocrit 28.6, platelet 154,000. Sodium 133, potassium 3.1, chloride 100, bicarbonate 20, BUN 17, creatinine 0.1, calcium 8.7. ASSESSMENT AND PLAN: 1. Septic shock improved. The blood pressure and heart rate and leukocytosis has been controlled. He is not on vasopressors. Infectious Disease Department is monitoring this patient. Septic shock was most likely secondary to urinary tract infection. 2. Severe right distal ureter obstruction and severe right hydronephrosis status post right nephrostomy tube placement. Will monitor. We will continue with the antibiotics. Urology department is on board. 3. Urinary tract infection. We have a positive culture for Providencia rustigianii. Infectious Disease Department is following this patient. Continue with following the recommendation. 4. Bacteremia. Positive culture result for Staphylococcus aureus and Proteus vulgaris, will monitor, continue with antibiotics. 5. Hypertension. Will monitor. At this moment this patient's blood pressure is controlled. 6. History of prostate cancer, urology evaluated this patient and they recommended to continue with Xtandi. 7. Deconditioning. This patient looks cachectic and chronically ill. I will continue this patient on physical therapy and current feedings.
[2016-06-11] MEDS: PROTONIX IV SCH (17:18)
[2016-06-11] MEDS: SODIUM CHLORIDE 0.9% INJ SCH (17:18)
[2016-06-12] MEDS: NORCO-7.5 PO PRN ×4 (00:20→21:17)
[2016-06-12] MEDS: MAXIPIME 2 GM/NS 100 ML IV SCH ×3 (04:20→21:18)
[2016-06-12 07:48] LABS: AGAP 13; BUN 14 mg/dL (8-22); CALCIUM 8.9 mg/dL (8.8-10.2); CHLORIDE 101 mmol/L (98-107); COSMO 275; POTASSIUM 4.2 mmol/L (3.5-5.1); SODIUM 136 mmol/L (136-145); TCO2 22 mmol/L (25-35)
[2016-06-12 07:54] LABS: BASO% 0.5 % (0.0-0.8); EOS# 0.22 X1000 (0.0-0.7); EOS% 2.8 % (0.0-10.0); HEMATOCRIT 30.2 % (42.0-52.0); HEMOGLOBIN 10.5 g/dL (14.0-18.0); IMM GRAN# 0.87 X1000 (0.0-0.04); IMM GRAN% 10.9 % (0.0-0.5); LYMPH# 1.05 X1000 (1.2-3.4); LYMPH% 13.2 % (20.5-51.1); MANUAL DIFF NEEDED? YES; MCH 30.9 PG (27-31); MCHC 34.8 g/dL (33-37); MCV 88.8 FL (81-99); MONO# 0.69 X1000 (0.11-0.59); MONO% 8.7 % (1.7-9.3); MPV 9.9 FL (7.4-10.4); NEUT% 63.9 % (42.2-75.2); PLT 178 X1000 (130-400)
[2016-06-12 08:09] LABS: BANDS 4 % (0-1); HYPOCHROM 1+; LYMPHS 16 % (21-51); MONO 8 % (1-9)
[2016-06-12] MEDS: NIACIN PO SCH (08:33)
[2016-06-12] MEDS: NS 1,000 ML IV SCH (08:34)
[2016-06-12] MEDS: HEPARIN SUBQ SCH ×2 (08:34→21:18)
[2016-06-12] MEDS: PRAVACHOL PO SCH (08:34)
[2016-06-12] MEDS: PATIENT'S OWN MED - CHEMO PO SCH (08:35)
--- NOTE | 2016-06-12 15:19 | PROGRESS NOTE ---
DATE: 06/12/2016 SUBJECTIVE: This patient states that he is feeling better. He is not complaining of pain at this moment. The family is at the bedside and all their questions were answered. OBJECTIVE: Vital Signs: Temperature 97.5 degrees, pulse 70, respiratory rate 14, blood pressure 143/87, oxygen saturation 99 on room air. HEENT: Head normocephalic. No trauma. PERRLA. Neck: Supple. No JVD. No masses. Central trachea. Chest: Clear to auscultation. No wheezing. No rales. Abdomen: Soft, nontender, nondistended. No hepatosplenomegaly. He has a colostomy bag on the right side of the abdomen. Mild tenderness to palpation in the suprapubic area also. He had a right nephrostomy tube placed on the right side on his back and that does not look infected or any sign of bleed. Amine and does not have any sign of bleed. Extremities: No edema. No clubbing. No cyanosis. Muscle mass decreased. Neurological: The patient is alert and oriented x3. No focal neurological deficits. LABORATORY: WBC 7.9, hemoglobin 10.5, hematocrit 30.2, platelets 178,000. Sodium 136, potassium 4.2, chloride 101, bicarbonate 22, BUN 14, creatinine 1, glucose 139, calcium 8.9. ASSESSMENT AND PLAN: 1. Septic shock, improved. The blood pressure, heart rate, and leukocytes are controlled. He is not on vasopressors. Infectious Disease Department is following this patient. Septic shock was likely related to urinary tract infection. 2. Severe right distal ureter obstruction and severe right hydronephrosis status post right nephrostomy tube placement. Will monitor. We will monitor. We will continue with the same antibiotics. Urology Department is on board. 3. Urinary tract infection. We have a positive culture for Providencia rustigianii. Infectious Disease Department is following this patient. I will continue following their recommendations. 4. Bacteremia. Positive culture result for Staphylococcus aureus and Proteus vulgaris. Will continue monitoring and antibiotics. 5. Hypertension. Will monitor. The blood pressure has been controlled. 6. History of prostate cancer. Urology evaluated this patient. We will continue with his treatment, Xtandi. 7. Deconditioning. This patient looks cachectic and chronically ill. I will continue this patient on physical therapy and current feeding. Probably upon discharge this patient will need to go to a rehab center.
[2016-06-12] MEDS: SODIUM CHLORIDE 0.9% INJ SCH (17:29)
[2016-06-12] MEDS: PROTONIX IV SCH (17:29)
[2016-06-13] MEDS: NS 1,000 ML IV SCH ×3 (04:12→17:48)
[2016-06-13] MEDS: MAXIPIME 2 GM/NS 100 ML IV SCH ×3 (04:12→21:24)
[2016-06-13] MEDS: NORCO-7.5 PO PRN ×4 (05:16→21:23)
[2016-06-13 06:58] LABS: BASO% 0.4 % (0.0-0.8); EOS% 3.9 % (0.0-10.0); HEMATOCRIT 29.8 % (42.0-52.0); HEMOGLOBIN 10.6 g/dL (14.0-18.0); IMM GRAN# 0.79 X1000 (0.0-0.04); IMM GRAN% 10.3 % (0.0-0.5); LYMPH# 1.16 X1000 (1.2-3.4); LYMPH% 15.1 % (20.5-51.1); MANUAL DIFF NEEDED? YES; MCH 31.1 PG (27-31); MCHC 35.6 g/dL (33-37); MCV 87.4 FL (81-99); MONO# 0.63 X1000 (0.11-0.59); MONO% 8.2 % (1.7-9.3); MPV 9.9 FL (7.4-10.4); NEUT% 62.1 % (42.2-75.2); PLT 211 X1000 (130-400); RBC 3.41 XMIL (4.7-6.1)
[2016-06-13 07:09] LABS: AGAP 14; BUN 12 mg/dL (8-22); CALCIUM 8.3 mg/dL (8.8-10.2); CHLORIDE 98 mmol/L (98-107); COSMO 266; SODIUM 132 mmol/L (136-145); TCO2 20 mmol/L (25-35)
[2016-06-13 07:36] LABS: BANDS 6 % (0-1); EOS 2 % (1-10); LYMPHS 20 % (21-51); MONO 10 % (1-9)
--- NOTE | 2016-06-13 07:39 | EKG Report ---
Test Performed on : 06/10/2016 3:48:44 PM Test Reason : PVC's Blood Pressure : / mmHG Vent. Rate : 136 BPM Atrial Rate : 122 BPM P-R Int : 140 ms QRS Dur : 076 ms QT Int : 296 ms P-R-T Axes : 061 -45 061 degrees QTc Int : 445 ms JUNCTIONAL Left axis deviation T wave abnormality, consider anterior ischemia Abnormal ECG When compared with ECG of 10-MAR-2016 09:15, Current undetermined rhythm precludes rhythm comparison, needs review T wave inversion now evident in Anterior leads Confirmed by Elias CHRIS, Mario Encarnacion ([id number]) on 06/14/2016 8:34:32 AM
[2016-06-13] MEDS ORDERED: KLOR-CON PO ONE (10:14)
--- NOTE | 2016-06-13 10:15 | PROGRESS NOTE ---
DATE: 06/13/2016 PRESENT ILLNESS: The patient has a Staph aureus and Proteus bacteremia. A culture taken from the kidney when the nephrostomy tube was put in also grew the same organisms. Therefore, the Staph and Proteus bacteremia did arise from the kidney infection. Patient also has a Providencia urinary tract infection. MEDICATIONS: The patient is on high dose cefepime. PHYSICAL EXAMINATION: Vital Signs: Temperature is 97.4, pulse 67, respirations 16, blood pressure 134/91. Generally: This is a somewhat ill-appearing, elderly male. He is in no acute distress. Lungs: Clear to auscultation. Cardiovascular: Heart rate is regular. Back: The patient has a right nephrostomy tube in place. Abdomen: The patient has an ileostomy and colostomy in place. The abdomen is not tender. Neurologic: Patient is awake. He can move his extremities. There is no tremor. LAB AND X-RAY: The culture taken from the kidney when the nephrostomy was put in as mentioned above grew oxacillin-sensitive Staph aureus and Proteus. Another blood culture drawn on the 09 of June also grew oxacillin-sensitive Staph aureus. The creatinine is 0.8. The GFR is greater than 6. The patient's CBC has a white count of 7680, hemoglobin 10.6, and platelet count 211,000. PLAN: My plan is to continue with cefepime as a single agent and I have ordered blood cultures to be drawn today. COMORBIDITIES: He had prostate cancer and had radiation treatments, and now has an ileostomy and colostomy. He had a stone in the distal ureter, which caused the urinary tract infection and bacteremia to occur.
[2016-06-13] MEDS: HEPARIN SUBQ SCH ×2 (10:21→21:24)
[2016-06-13] MEDS: NIACIN PO SCH (10:21)
[2016-06-13] MEDS: PRAVACHOL PO SCH (10:21)
--- NOTE | 2016-06-13 11:01 | PROGRESS NOTE ---
DATE: 06/13/2016 SUBJECTIVE: The patient has no complaints today. He appears comfortable. OBJECTIVE: Vital Signs: Heart rate is in the 60s to 70s. Blood pressure is 130s over 80s to 90s. Patient remains afebrile. General: On exam, this is a well-developed male. He is awake and alert. HEENT: Otherwise benign. Neck: Supple. Chest: Clear. Cardiovascular: Reveals a regular rate and rhythm. Abdomen: Positive bowel sounds. Nontender, nondistended. Extremities: There is no edema. IMPRESSION/PROBLEM: Bacteremia. The patient has multi-bacterial bacteremia, with one of these agents being staph. We have concern for endocarditis. There is a thickened aortic valve leaflet with possible vegetation and 2+ aortic insufficiency. We are planning transesophageal echocardiogram within the next 1-2 days. I have fully discussed this with the patient and his family. I have also discussed this with infectious disease. Further recommendations will follow after we more clearly define valvular anatomy. In the interim, the patient remains on antibiotic therapy.
--- NOTE | 2016-06-13 12:53 | PROGRESS NOTE ---
DATE: 06/13/2016 SUBJECTIVE: This patient states that he is feeling about the same. He is complaining about pain in the lower back and lower extremities. The family is at the bedside and all of their questions were answered. OBJECTIVE: Vital Signs: Temperature 97.4 degrees, pulse 64, respiratory rate 14, blood pressure 134/91, oxygen saturation 99 on room air. HEENT: Head normocephalic. No trauma. PERRLA. Neck: Supple. No JVD. No masses. Central trachea. Chest: Clear to auscultation. No wheezing. No rales. Cardiovascular: RRR. No murmurs. Abdomen: Soft, nontender, nondistended. No hepatosplenomegaly. He has a colostomy bag on the right side of the abdomen. Mild tenderness to palpation in the suprapubic area also. He had a right nephrostomy tube placed on the right side of his back that does not look infected or have any signs of bleed. Extremities : No edema. No clubbing. No cyanosis. Muscle mass decreased. Neurological: The patient is alert and oriented x3. No focal neurological deficits. LABORATORY: WBC 7.6, hemoglobin 10.6, hematocrit 29.8, platelet 211,000. Sodium 132, potassium 3, chloride 98, bicarbonate 20, glucose 122, BUN 12, creatinine 0.8, calcium 8.3. ASSESSMENT AND PLAN: 1. Septic shock, improved, likely secondary to severe urinary tract infection. His vital signs are good this moment. Infectious Disease Department is on board and following this patient. 2. Severe right distal ureter obstruction and severe right hydronephrosis status post right nephrostomy tube placement. Will monitor. Urology Department is on board. 3. Urinary tract infection. We have a positive culture for Providencia rustigianii. Infectious Disease Department is following this patient. I will continue with their recommendation. 4. Bacteremia. Positive culture for Staphylococcus aureus and Proteus vulgaris. Continue monitoring and antibiotics. 5. Possible endocarditis. We have a positive culture for Staphylococcus aureus. This patient will get an esophageal echocardiogram to rule out endocarditis in the next 1- 2 days. 6. History of prostate cancer. Urology is on board. They evaluated this patient. Will continue with this treatment. 7. Deconditioning. I already talked to the family and the patient and they agreed to send this patient to a rehab center upon discharge. sand control worker is on board. [facility]
[2016-06-13] MEDS: PATIENT'S OWN MED - CHEMO PO SCH (12:59)
[2016-06-13] MEDS: SODIUM CHLORIDE 0.9% INJ SCH (17:45)
[2016-06-13] MEDS: PROTONIX IV SCH (17:45)
[2016-06-14] MEDS: NORCO-7.5 PO PRN ×5 (02:06→18:48)
[2016-06-14] MEDS: NS 1,000 ML IV SCH ×3 (02:07→20:53)
[2016-06-14] MEDS: MAXIPIME 2 GM/NS 100 ML IV SCH ×3 (05:39→20:54)
[2016-06-14 06:44] LABS: BASO% 0.5 % (0.0-0.8); EOS# 0.33 X1000 (0.0-0.7); EOS% 4.1 % (0.0-10.0); HEMOGLOBIN 10.6 g/dL (14.0-18.0); IMM GRAN# 0.81 X1000 (0.0-0.04); LYMPH# 1.32 X1000 (1.2-3.4); LYMPH% 16.3 % (20.5-51.1); MANUAL DIFF NEEDED? YES; MCH 30.9 PG (27-31); MCHC 35.3 g/dL (33-37); MCV 87.5 FL (81-99); MONO# 0.52 X1000 (0.11-0.59); MONO% 6.4 % (1.7-9.3); MPV 9.8 FL (7.4-10.4); NEUT% 62.7 % (42.2-75.2); PLT 258 X1000 (130-400); RBC 3.43 XMIL (4.7-6.1)
[2016-06-14 07:21] LABS: BANDS 5 % (0-1); EOS 4 % (1-10); LYMPHS 16 % (21-51); MONO 4 % (1-9)
[2016-06-14 07:22] LABS: AGAP 13; BUN 13 mg/dL (8-22); CALCIUM 8.6 mg/dL (8.8-10.2); CHLORIDE 103 mmol/L (98-107); COSMO 271; POTASSIUM 3.3 mmol/L (3.5-5.1); SODIUM 135 mmol/L (136-145); TCO2 19 mmol/L (25-35)
--- NOTE | 2016-06-14 07:45 | Diag Imaging Result Document ---
PROCEDURE NAME: S/I NEPHROSTOGRAM NEW ACCESS - 06/10/2016 RIGHT PERCUTANEOUS NEPHROSTOMY: FINDINGS: The risks and benefits were discussed with the patient, including the possibility of bleeding, infection, reaction to local anesthetic and other anesthetic drugs, as well as renal damage, and he agreed. Following sterile preparation of the skin over the right kidney laterally and localization of the collecting system by ultrasonography, the system was entered in a lower pole thee and contrast was injected demonstrating the collecting system. There is grossly purulent material draining from the needle. A guidewire was placed and subsequently the tract was dilated up to 11 Hebrew. A 10-Hebrew [place] loop nephrostomy catheter was then secured in place with its loop in the renal pelvis. The tube was secured to the skin with suture and also the adhesive device. There are no immediate complications. There is a fair amount of purulent material drained from the system, which was sent to the laboratory. IMPRESSION: Successful placement of right percutaneous nephrostomy with ultrasound and fluoroscopic guidance. The total fluoroscopic time was 1 minute 45 seconds for a dose of 86 milligray.
[2016-06-14] MEDS ORDERED: KLOR-CON PO ONE (07:53)
--- NOTE | 2016-06-14 08:06 | PROGRESS NOTE ---
DATE: 06/14/2016 PRESENT ILLNESS: Patient has a Staph aureus and Proteus bacteremia, which originates from the patient's right-sided pyelonephritis with obstruction. The patient also has a Staph aureus, Proteus, and Providencia urinary tract infection, which was caused, also, by the fact that a stone obstructed the ureter on the right side. MEDICATIONS: The patient is receiving a high dose of cefepime. This is day 5 of treatment with cefepime. PHYSICAL EXAMINATION: Vital Signs: Patient's temperature is 97.6 degrees. Pulse 57. Respirations 18. Blood pressure 136/64. General: This is a chronically ill-appearing, elderly male. He is in no acute distress. Lungs: Clear to auscultation. Cardiovascular: Heart rate was irregular and rapid. Abdomen: Soft and nontender. The patient has an ileostomy and colostomy in place. Back: The patient has a percutaneous nephrostomy tube in as well. LABORATORY AND X-RAY DATA: There is no new x-ray. The CBC shows a white count of 8110, hemoglobin 10.6, and platelet count 258,000, creatinine 0.8, and GFR is greater than 60. ASSESSMENT AND PLAN: Patient has bacteremia and a urinary tract infection. My plan is to continue with cefepime and, after 2 or 3 weeks of treatment with that, I may be able to switch the patient to an oral regimen, which I will continue to have the patient take until his stone in the distal ureter has been cleared out. Also, we will continue with a nephrostomy until the obstruction is cleared in the ureter, also. COMORBIDITY: The patient's comorbidity includes prostate cancer with radiation treatments. The patient, as a result of that, had an ileostomy and colostomy performed. Also, another comorbidity is the fact that the patient has a stone in the distal ureter, which undoubtedly caused his infection and bacteremia.
[2016-06-14] MEDS: NIACIN PO SCH (08:54)
[2016-06-14] MEDS: PRAVACHOL PO SCH (08:54)
[2016-06-14] MEDS: HEPARIN SUBQ SCH ×2 (08:54→20:54)
[2016-06-14] MEDS: PATIENT'S OWN MED - CHEMO PO SCH (08:59)
--- NOTE | 2016-06-14 15:43 | PROGRESS NOTE ---
DATE: 06/14/2016 SUBJECTIVE: This patient states that he is feeling better, he is not complaining about pain at this moment. He has been on physical therapy and he has been tolerating that. OBJECTIVE: Vital Signs: Temperature 97.4 degrees, pulse 76, respiratory rate 16, blood pressure 144/80, O2 saturation 96 on room air. HEENT: Head normocephalic. No trauma. PERRLA. Neck: Supple. No JVD. No masses. Central trachea. Chest: Clear to auscultation. No wheezing. No rales. Cardiovascular: RRR. No murmurs. No gallops. No rubs. Abdomen: Soft, nontender, nondistended. No hepatosplenomegaly. He has a colostomy bag on the right side of the abdomen. Mild tenderness to palpation in the suprapubic area. He had a right nephrostomy tube placed on the right side of his back that looks clean, not infected. Extremities: No edema. No clubbing. No cyanosis. Muscle mass decreased. Neurological: The patient is alert and oriented x3. No focal neurological deficits. LABORATORY: WBC 8.1, hemoglobin 10.6, hematocrit 30, platelets 258,000. Sodium 135, potassium 3.3, chloride 103, bicarbonate 19, BUN 13, creatinine 0.8, glucose 109, calcium 8.6. ASSESSMENT AND PLAN: 1. Septic shock, improved. This is likely secondary to severe urinary tract infection. His vital signs are good at this moment. Infectious Disease Department is following this patient. 2. Severe right ureter obstruction and severe right hydronephrosis status post right nephrostomy tube placement, will monitor. Urology Department is on board. 3. Urinary tract infection. We have a positive culture for Providencia rustigianii. Infectious Disease Department is following this patient. Will continue their recommendation. 4. Bacteremia. Positive culture for Staphylococcus aureus and Proteus vulgaris. Continue monitoring and antibiotics. 5. Possible endocarditis. We have a positive culture for Staphylococcus aureus. Cardiology department is planning to perform a transesophageal echocardiogram to rule out endocarditis. 6. History of prostate cancer. Urology Department is on board. They are evaluating this patient. We will continue with the same treatment Xtandi. 7. Deconditioning. I already talked to the family about this patient and they agreed to send this patient to a rehab center once this patient is ready to be discharged. pressroom worker is on board.
[2016-06-14] MEDS: SODIUM CHLORIDE 0.9% INJ SCH (18:47)
[2016-06-14] MEDS: PROTONIX IV SCH (18:47)
[2016-06-15] MEDS: NORCO-7.5 PO PRN ×5 (00:03→21:01)
[2016-06-15] MEDS: NS 1,000 ML IV SCH ×4 (04:14→21:02)
[2016-06-15] MEDS: MAXIPIME 2 GM/NS 100 ML IV SCH ×3 (04:56→21:03)
[2016-06-15 07:32] LABS: AGAP 13; BUN 14 mg/dL (8-22); CALCIUM 8.8 mg/dL (8.8-10.2); CHLORIDE 106 mmol/L (98-107); COSMO 272; MAGNESIUM 1.4 mg/dL (1.5-2.7); POTASSIUM 3.6 mmol/L (3.5-5.1); SODIUM 136 mmol/L (136-145); TCO2 17 mmol/L (25-35)
[2016-06-15] MEDS ORDERED: MAGNESIUM SULFATE 2 GM/S.W.I. 50 ML IV ONE (08:08)
[2016-06-15] MEDS: NIACIN PO SCH (09:02)
[2016-06-15] MEDS: PATIENT'S OWN MED - CHEMO PO SCH (09:03)
[2016-06-15] MEDS: PRAVACHOL PO SCH (09:03)
[2016-06-15 09:26] LABS: INR 1.03; PROTIME 10.9 Seconds (9.2-11.7); PTT 25.6 Seconds (22.0-36.0)
[2016-06-15] MEDS ORDERED: HURRICAINE SPRAY (DOSE) ONE (09:39)
[2016-06-15] MEDS ORDERED: XYLOCAINE 2% VISCOUS ONE (09:39)
[2016-06-15] MEDS ORDERED: SODIUM CHLORIDE 0.9% 10 ML ONE (09:39)
[2016-06-15] MEDS ORDERED: XYLOCAINE 4% TOPICAL SOLUTION ONE (09:39)
[2016-06-15] MEDS ORDERED: DIPRIVAN 1% ONE (11:01)
[2016-06-15] MEDS: HEPARIN SUBQ SCH ×2 (12:32→21:03)
[2016-06-15] MEDS ORDERED: XYLOCAINE-MPF 2% ONE (12:36)
[2016-06-15] MEDS ORDERED: NS 250 ML ONE (13:35)
--- NOTE | 2016-06-15 13:59 | PROGRESS NOTE ---
DATE: 06/15/2016 SUBJECTIVE: This patient is about the same. He does not have any specific complaint at this moment. He is feeling better. Probably we will get a transesophageal echocardiogram done; I will ask for a PICC line to see if we can get it today or tomorrow. OBJECTIVE: Vital Signs: Temperature 97.7 degrees, pulse 70, respiratory rate 20, blood pressure 131/70 and oxygen saturation 97% on room air. HEENT: Head normocephalic. No trauma. PERRLA. Neck: Supple. No JVD. No masses. Central trachea. Chest: Clear to auscultation. No wheezing. No rales. Cardiovascular: RRR. No murmurs. No gallops or rubs. Abdomen: Soft, nontender, nondistended. No hepatosplenomegaly. He has a colostomy bag on the right side of the abdomen. Mild tenderness to palpation in the suprapubic area. He has also the right nephrostomy tube placed on the right side of his back that looks clean, not infected. Extremities: No edema. No clubbing. No cyanosis. Muscle mass decreased. Neurological examination: The patient is alert and oriented x3. No focal neurological deficits. LABORATORY: PT 10.9, INR 1, PTT 25.6. Sodium 136, potassium 3.6, chloride 106, bicarbonate 17, BUN 14, creatinine 0.8, glucose 96, calcium 8.8, magnesium 1.4. ASSESSMENT AND PLAN: 1. Septic shock, improved secondary to urinary tract infection. Vital signs are stable. He is not on any pressors. Infectious Disease Department is following this patient. We will continue with the antibiotics. 2. Severe right ureter obstruction and severe right hydronephrosis, status post right nephrostomy tube placement. We will monitor. Urology Department is on board. 3. Urinary tract infection with a positive result for Providencia rustigianii. Infectious Disease Department is following this patient. We will continue with their recommendations. 4. Bacteremia. Positive culture for Staphylococcus aureus and Proteus vulgaris. Continue monitoring and antibiotics. 5. Possible endocarditis. We have a positive blood culture for Staphylococcus aureus. Cardiology Department is planning to perform a transesophageal echocardiogram to rule out endocarditis. 6. Hypomagnesemia. I will replace the magnesium today. 7. History of prostate cancer. Urology Department is on board. They are evaluating this patient, and they continue the same treatment, Xtandi. 8. Deconditioning. I already talked to the family about this patient and they agreed to send this patient to a rehabilitation center, social media marketing specialist is on board.
--- NOTE | 2016-06-15 14:34 | PROGRESS NOTE ---
DATE: 06/15/2016 PRESENT ILLNESS: The patient has a Staph aureus, Proteus, and Providencia urinary tract infection associated with a Staph aureus and Proteus bacteremia. The urinary tract infection originated because the patient has a stone in the ureter on the right side which has caused an obstruction. Patient earlier had an echocardiogram and there is a possibility that the patient has a vegetation on the aortic valve. MEDICATIONS: This is day 6 of treating the patient with cefepime 2 g IV every 8 hours. PHYSICAL EXAMINATION: Vital Signs: Temperature is 97.7 degrees, pulse is 70, respirations 20, blood pressure 131/70. General: This is a chronically ill-appearing, elderly male. He is in no acute distress. Cardiovascular: His heart rate is irregular and at times rapid. Lungs: Clear to auscultation. Abdomen: Soft and nontender. The patient has an ileostomy and colostomy in place. Back: In the patient's back there is a percutaneous nephrostomy in place on the right side. LABORATORY AND X-RAY: The patient's creatinine today is 0.8. GFR is greater than 60. There is no new CBC or radiographic study. ASSESSMENT AND PLAN: The patient has a bacteremia and urinary tract infection which I plan to continue treating with cefepime for at least 2-[address] weeks[address] by then Dr. Rodriges will be able to get rid of the stone in the distal ureter. Also Dr. Ambriz is going to perform a transesophageal echocardiogram on the patient to determine if there is in fact a vegetation on the aortic valve. The patient's comorbidities include prostate cancer with radiation treatments. The results of the treatment caused blockages in the and GI tract. The patient therefore had to have an ileostomy and colostomy performed. Patient also has a stone in the distal right ureter. [facility]
[2016-06-15] MEDS: PROTONIX IV SCH (19:13)
--- NOTE | 2016-06-15 21:40 | Transesophageal Echocardiogram ---
DATE: 06/15/2016 INDICATION FOR THE STUDY: Evaluate for possible endocarditis. PROCEDURE IN DETAIL: Mr. Meyer was brought to the cardiac catheterization laboratory in fasting state. Informed consent was obtained. He was prepped in the usual fashion including viscous lidocaine and Hurricaine spray. After appropriate pharyngeal anesthesia was obtained, he was sedated with propofol and the TRIP probe was passed without difficulty. Images were obtained in multiple views and planes. FINDINGS: 1. This is an extremely difficult study. Right heart structures are very poorly visualized. Overall there is moderate tricuspid regurgitation. Again the right atrium and right ventricle were extremely difficult to visualize. Per the transthoracic echo on the 29, the right ventricle appeared to have preserved size and systolic function. 2. There is mild pulmonic insufficiency. 3. Left atrium appeared to be normal in size. There was no evidence of clot in the left atrium or left atrial appendage. Pulse wave velocity in the left atrial appendage was greater than 50 cm/sec. 4. There is no evidence of mitral valve prolapse. There is mild mitral regurgitation with multi jet mitral regurgitation identified. 5. The left ventricle appeared to be normal in size. The estimated ejection fraction is greater than 55%. There was no evidence of any significant wall motion abnormalities. 6. Aortic valve appeared to be trileaflet. There were calcifications primarily involving the tip of the left coronary cusp as well as the base of the cusps. There is mild aortic insufficiency with no evidence of significant stenosis. There is no clear evidence of any vegetation involving the cusps. 7. Aorta had moderate calcified atherosclerosis throughout the visualized length. 8. No pericardial effusion identified. 9. There is no clear evidence of vegetation adherent to any of the valve structures.
[2016-06-16] MEDS: NORCO-7.5 PO PRN ×5 (00:46→20:58)
[2016-06-16] MEDS: MAXIPIME 2 GM/NS 100 ML IV SCH ×3 (04:53→20:57)
[2016-06-16 06:50] LABS: BASO% 0.3 % (0.0-0.8); EOS# 0.44 X1000 (0.0-0.7); EOS% 4.6 % (0.0-10.0); HEMATOCRIT 28.8 % (42.0-52.0); HEMOGLOBIN 9.7 g/dL (14.0-18.0); IMM GRAN# 0.55 X1000 (0.0-0.04); IMM GRAN% 5.8 % (0.0-0.5); LYMPH# 1.49 X1000 (1.2-3.4); LYMPH% 15.7 % (20.5-51.1); MANUAL DIFF NEEDED? YES; MCH 30.1 PG (27-31); MCHC 33.7 g/dL (33-37); MCV 89.4 FL (81-99); MONO# 0.69 X1000 (0.11-0.59); MONO% 7.3 % (1.7-9.3); MPV 9.5 FL (7.4-10.4); NEUT% 66.3 % (42.2-75.2); PLT 339 X1000 (130-400); RBC 3.22 XMIL (4.7-6.1)
[2016-06-16 07:10] LABS: AGAP 12; BUN 17 mg/dL (8-22); CALCIUM 8.9 mg/dL (8.8-10.2); CHLORIDE 104 mmol/L (98-107); COSMO 274; POTASSIUM 3.7 mmol/L (3.5-5.1); SODIUM 136 mmol/L (136-145); TCO2 20 mmol/L (25-35)
[2016-06-16 07:32] LABS: EOS 2 % (1-10); LYMPHS 18 % (21-51); MONO 6 % (1-9)
--- NOTE | 2016-06-16 08:59 | PROGRESS NOTE ---
DATE: 06/16/2016 PRESENT ILLNESS: The patient has a Staph aureus, Proteus, and Providencia urinary tract infection associated with a Staph aureus and Proteus bacteremia. The patient has an obstructing stone in the right ureter which caused the patient to develop a urinary tract infection. The patient on echocardiogram had a possible vegetation on the aortic valve. MEDICATIONS: This is day 7 of treatment with cefepime in a dose of 2 g IV every 8 hours. PHYSICAL EXAMINATION: Vital Signs: Temperature is 97.6, pulse 73, respirations 22, blood pressure 137/75. General: This is an ill-appearing, elderly male, who is in no acute distress. Lungs: Clear to auscultation. Cardiovascular: Irregular heart rate. Abdomen : The patient has an ileostomy and colostomy in place. Neurologic: Patient is alert. He can move his extremities. LAB AND X-RAY: The patient's CBC today showed a white count of 9500, hemoglobin 9.7, and platelet count 339,000. Creatinine is 0.7. There is no radiographic study. However, the patient did have his transesophageal echocardiogram done yesterday and the results are that there was no clear evidence of a vegetation adherent to any of the cardiac valve structures. ASSESSMENT AND PLAN: The patient has urinary tract infection and bacteremia but not endocarditis. I plan to continue the patient's current antibiotics for the total of at least 2 weeks and possibly longer. COMORBIDITIES: Include the following. He is elderly. He had radiation therapy for prostate cancer with resulting ileostomy and colostomy having to be performed. [facility]
[2016-06-16] MEDS: HEPARIN SUBQ SCH ×2 (09:00→20:58)
[2016-06-16] MEDS: NIACIN PO SCH (09:00)
[2016-06-16] MEDS: PRAVACHOL PO SCH (09:00)
[2016-06-16] MEDS: PATIENT'S OWN MED - CHEMO PO SCH (09:30)
[2016-06-16] MEDS: NS 1,000 ML IV SCH (11:41)
[2016-06-16] MEDS: PROTONIX IV SCH (16:40)
[2016-06-16] MEDS: SODIUM CHLORIDE 0.9% INJ SCH (17:40)
[2016-06-17] MEDS: NORCO-7.5 PO PRN ×2 (02:13→09:06)
[2016-06-17] MEDS: NS 1,000 ML IV SCH (04:08)
[2016-06-17] MEDS: MAXIPIME 2 GM/NS 100 ML IV SCH ×2 (05:53→14:52)
[2016-06-17 07:01] LABS: MANUAL DIFF NEEDED? NO
[2016-06-17 07:25] LABS: BASO% 0.2 % (0.0-0.8); EOS# 0.32 X1000 (0.0-0.7); HEMATOCRIT 28.3 % (42.0-52.0); HEMOGLOBIN 9.6 g/dL (14.0-18.0); IMM GRAN# 0.24 X1000 (0.0-0.04); IMM GRAN% 2.3 % (0.0-0.5); LYMPH# 1.25 X1000 (1.2-3.4); LYMPH% 11.9 % (20.5-51.1); MCH 30.3 PG (27-31); MCHC 33.9 g/dL (33-37); MCV 89.3 FL (81-99); MONO% 4.7 % (1.7-9.3); MPV 9.4 FL (7.4-10.4); NEUT% 77.9 % (42.2-75.2); PLT 323 X1000 (130-400); RBC 3.17 XMIL (4.7-6.1)
[2016-06-17 07:36] LABS: AGAP 11; BUN 16 mg/dL (8-22); CALCIUM 8.6 mg/dL (8.8-10.2); CHLORIDE 105 mmol/L (98-107); COSMO 273; POTASSIUM 3.3 mmol/L (3.5-5.1); SODIUM 136 mmol/L (136-145); TCO2 20 mmol/L (25-35)
[2016-06-17] MEDS ORDERED: KLOR-CON PO ONE (07:37)
[2016-06-17] MEDS: NIACIN PO SCH (09:06)
[2016-06-17] MEDS: PRAVACHOL PO SCH (09:07)
[2016-06-17] MEDS: HEPARIN SUBQ SCH (09:07)
[2016-06-17] MEDS: PATIENT'S OWN MED - CHEMO PO SCH (09:12)
--- NOTE | 2016-06-17 12:56 | DISCHARGE SUMMARY ---
ADMISSION DATE: 06/06/2016 DISCHARGE DATE: 06/16/2016 CONSULTATIONS: 1. Andres Hill MD 2. Sreekanth Rodriges MD 3. Gaye Ambriz MD. PERTINENT PROCEDURES: 1. Echocardiogram showed an EF of 60%. Physiologic pericardial effusion of no hemodynamic significance. Appears to be a small mobile structure originating from the aortic side of the valve, could not exclude vegetation as an etiology. It is technically a difficult study. 2. Abdomen pelvis CT showed severe right distal ureter obstruction due to migration of a large right renal stone to the distal ureter at about the level of the muscular bony wall. Severe right hydronephrosis. New bilateral pleural effusions. 3. Nephrostogram. Successful placement of right percutaneous nephrostomy with ultrasound and fluoroscopic guidance. 4. TRIP. No evidence of clot in the left atrium or left atrial appendage. EF was greater than 55. No evidence of significant wall motion abnormalities. No clear evidence of any vegetation involving the cusp on the aortic valve. No clear evidence of vegetation adherent to any of the valve structures. DISCHARGE DIAGNOSES: 1. Septic shock secondary to urinary tract infection, improved. 2. Severe right ureter obstruction and severe right hydronephrosis status post right nephrostomy tube placement, stable. Urinary tract infection positive for Providencia rustigianii. Patient going to rehab with IV antibiotics. 3. Bacteremia. Positive cultures for Staphylococcus aureus and Proteus vulgaris. Continue with IV antibiotics. 4. Questionable endocarditis ruled out by transesophageal echocardiogram. 5. Hypomagnesemia, resolved. 6. Prostate cancer history. Followed by Urology. Continuing Xtandi. 7. Deconditioning. Patient being discharged to rehab. HOSPITAL COURSE: Briefly, Mr. Meyer is a 75-year-old, male with a past medical history of prostate cancer with end-colostomy and hypertension. Was brought in by family because of generalized weakness and altered mental status as well. The patient had been normal the day before, then he started having chills, subjective fever and as per the family, mental changes. He was brought to the ED. No focal deficits were found. The patient did have a severe urinary tract infection. Blood pressure has been on the lower side. He was given fluid resuscitation while he was in the ED. The patient was admitted to the ICU with a diagnosis of septic shock. He was started on broad-spectrum antibiotics and vasopressors. The patient's septic shock resolved. He was moved to medical floor. ID was consulted. Patient had a blood culture that was positive for Staphylococcus aureus and Proteus vulgaris and urine culture that was positive for Providencia rustigianii. The patient was switched from the patient's current antibiotics from cefepime and ordered a CT scan of the abdomen and pelvis. This did show a severe right distal ureteral obstruction due to migration of a large right renal stone and severe right hydronephrosis. Patient underwent a nephrostogram by Dr. Ortiz for a nephrostomy tube. Dr. Sreekanth Rodriges was also consulted with Urology due the patient's history of stage IV prostate cancer. They restarted Xtandi at his home dosage and he will follow the patient's renal stone for further evaluation. The patient did undergo an echocardiogram that did show some possible vegetation suggesting endocarditis. They recommended a TRIP prior to discharge because he was appropriately being treated with antibiotics. Patient did undergo a TRIP. It did not show any evidence of vegetation adherent to any of the valve structures. The patient will continue treatment with cefotaxime for at least 2-[address] Rodriges has spoken with the patient about the options to rid him of the renal stone in the distal ureter. The patient is being discharged to rehab. He will continue IV antibiotics for 2-3 weeks. He will follow up with Dr. Hill in 2 weeks or possibly longer. He will need to continue to follow up with Dr. Rodriges for his renal stone. VITAL SIGNS: Discharge temperature is 97.7 degrees, heart rate 65, respirations 20, blood pressure 136/68, O2 is 98% on room air. DISCHARGE DIET: GI soft diet. DISCHARGE MEDICATIONS: 1. Lotrel 10/20 mg 1 each p.o. daily. 2. Bicalutamide 50 mg p.o. daily. 3. Lopressor 100 mg p.o. daily. 4. Nexium 40 mg p.o. daily. 5. Niacin 50 mg p.o. daily. 6. Glyburide metformin HCL 1 each p.o. daily. 7. Pravastatin 80 mg p.o. daily. 8. [place] 7.5/325 one each p.o. q.4 hours p.r.n. pain. 9. Xtandi the patient is on 1 p.o. daily. FOLLOWUP: The patient is being discharged to rehab with his present colostomy and nephrostomy. He will follow up with primary care physician who is labeled as Dr. Donavan Mcmahon after rehab. He will follow up with Dr. Hill in 2 weeks. He will follow up with Dr. Rodriges for his renal stone. Patient can return to the ED for any worsening of symptoms. TIME SPENT: Thirty-five minutes. Dictated by ANTELMO Gold for Kevin Hoff MD [facility]
[2016-06-17 15:07] VITALS: BP 151/78
--- NOTE | 2016-06-17 15:27 | PROGRESS NOTE ---
DATE: 06/17/2016 PRESENT ILLNESS: The patient has a Staph aureus, Proteus and Providencia urinary tract infection associated with a Staph aureus and Proteus bacteremia. The patient also has an obstructing stone in the right ureter. The patient on echocardiogram does not have an aortic valve vegetation. MEDICATIONS: This is day 8 of treatment with cefepime in a dose of 2 g IV every 8 hours. PHYSICAL EXAMINATION: Vital Signs: Temperature is 98.2 degrees, pulse 118, respirations 23, blood pressure 161/78. Generally: This is an ill-appearing elderly male who is in no acute distress. Cardiovascular: Heart rate for the most part was regular. There were some times when it was irregular. Lungs: Clear to auscultation. Abdomen: Soft and nontender. There is an ileostomy in place as well as a colostomy. Both sites are not erythematous. Back: There is a drain a nephrostomy tube. That site also is not erythematous or swollen. LAB AND X-RAY: There is no new x-ray today. The lab shows a CBC with a white count of 10,540, hemoglobin 9.6, and platelet count 323,000. The creatinine is 0.7. As mentioned above, a transesophageal echocardiogram did not find any evidence of aortic valve endocarditis. ASSESSMENT AND PLAN: The patient has a bacteremia but not endocarditis. He also has a urinary tract infection. He also has a stone in his distal right ureter. The plan is to continue the patient's antibiotics at least until such time that the stone can be taken care of. I plan to continue the antibiotics now for 3 weeks and I have requested that the patient see me in my office in 3 weeks. COMORBIDITIES: Include he is elderly, he has had radiation therapy for prostate cancer and as a result of that and some other factors he required to get an ileostomy and colostomy. Also the patient has a distal ureteral stone. [facility]
--- NOTE | 2016-06-17 17:55 | PROGRESS NOTE ---
DATE: 06/17/2016 SUBJECTIVE: This patient states that he is feeling better. He has no complaint of any specific problem at this moment. He denies nausea, vomiting, diarrhea, constipation. He has no complaint of chest pain or shortness of breath. We are just waiting for placement. Physical Therapy is on board. OBJECTIVE: Vital Signs: Temperature 97.9 degrees, pulse 99, respiratory rate 20, blood pressure 151/78, O2 saturation 100% on room air. HEENT: Head normocephalic. No trauma. PERRLA. Neck: Supple. No JVD. No masses. Central trachea. Chest: Clear to auscultation. No wheezing. No rales. Cardiovascular: RRR. No murmurs. No gallops. No rubs. Abdomen: Soft, nontender, nondistended. No hepatosplenomegaly. He has a colostomy bag on the right side of the abdomen, mild tenderness to palpation. He also has a right nephrostomy tube placed on the right side of his back that looks clean, not infected. Extremities: No edema. No clubbing. No cyanosis. Muscle mass decreased. Neurological Examination: The patient is alert and oriented x3. No focal neurological deficits. LABORATORY: WBC 10.5, hemoglobin 9.6, hematocrit 28.3, platelets 323,000. Sodium 136, potassium 3.3, chloride 105, bicarbonate 20, BUN 16, creatinine 0.7, glucose 101, calcium 8.6. ASSESSMENT AND PLAN: 1. Septic shock, improved, likely secondary to urinary tract infection. Vital signs are stable. Continue monitoring. 2. Severe right ureteral obstruction and severe right hydronephrosis status post right nephrostomy tube placement. We will monitor. Urology Department is on board. Continue with the same management. 3. Urinary tract infection with a positive result for Providencia rustigianii. The Infectious Disease Department is following this patient. We will continue with their recommendations. 4. Bacteremia. Positive culture Proteus vulgaris. Continue monitoring and antibiotics. 5. History of prostate cancer. Urology Department is on board. They are evaluating this patient and they are continuing with the same treatment, Xtandi. 6. Deconditioning. This patient is waiting for a place in a rehabilitation center, social media sr strategy manager is on board. 7. Overall this patient is doing much better, vital signs are stable. We are waiting for placement. [facility]
== END 2016-06-17 18:35 | DRG 853 ==
LOC: EDBD → ED 14:01 → SUPCPDRO 14:01 → ICU 17:12 → 3N 06-09 17:13
PROVIDERS: ATTEND Internal Medicine
PROC: 0T143JD Bypass Left Kidney Pelvis to Cutaneous with Synthetic Substitute, Percutaneous Approach (ICD-10-PCS; principal; 2016-06-10 12:30)
PROC: B24BZZ4 Ultrasonography of Heart with Aorta, Transesophageal (ICD-10-PCS; 2016-06-15)
DX: A41.01 Sepsis due to Methicillin susceptible Staphylococcus aureus (principal); R65.21 Severe sepsis with septic shock; R64 Cachexia; E83.42 Hypomagnesemia; C79.9 Secondary malignant neoplasm of unspecified site; N39.0 Urinary tract infection, site not specified; N13.6 Pyonephrosis; Z68.1 Body mass index [BMI] 19.9 or less, adult; C61 Malignant neoplasm of prostate; E11.9 Type 2 diabetes mellitus without complications; I10 Essential (primary) hypertension; E78.5 Hyperlipidemia, unspecified; R62.7 Adult failure to thrive; K21.9 Gastro-esophageal reflux disease without esophagitis; K46.9 Unspecified abdominal hernia without obstruction or gangrene; N47.1 Phimosis; Z93.3 Colostomy status; Z95.5 Presence of coronary angioplasty implant and graft; Z79.899 Other long term (current) drug therapy; Z92.3 Personal history of irradiation; Z93.2 Ileostomy status
CPT/HCPCS: 36415; 36569; 50430; 71010; 74178; 76775; 80048; 80053; 81001; 82270; 82948; 83605; 83735; 84100; 85025; 85610; 85730; 87040; 87070; 87077; 87088; 87186; 93005; 93010; 93306; 93312; 94761; 94762; 94799; 96365; C9113; J0670; J0692; J1580; J1644; J2270; J2543; J3010; J3370; J3475; J7030; J7040; J7050; J7120; Q9966; Q9967; 97001-GP; 97002-GP; 97110-GP; 97116-GP; 97530-GP; S0164

== ENCOUNTER 2016-08-04 05:47 | Day surgery (SDC) ==
[2016-08-04] MEDS ORDERED: GENTAMICIN 80 MG/NS 50 ML ONE (06:33)
[2016-08-04] MEDS ORDERED: KEFZOL 1 GM/D5W 50 ML ONE (06:34)
[2016-08-04] MEDS ORDERED: LR 1,000 ML ONE (06:34)
[2016-08-04] MEDS ORDERED: LOPRESSOR ONE (07:26)
[2016-08-04] MEDS ORDERED: REGLAN ONE (07:34)
[2016-08-04] MEDS ORDERED: PEPCID ONE (07:34)
[2016-08-04] MEDS ORDERED: MANNITOL ONE (08:53)
[2016-08-04] MEDS ORDERED: ZOFRAN ONE (08:53)
[2016-08-04] MEDS ORDERED: XYLOCAINE-MPF 2% ONE (08:54)
[2016-08-04] MEDS ORDERED: EPHEDRINE ONE (08:54)
[2016-08-04] MEDS ORDERED: DECADRON ONE (08:54)
[2016-08-04] MEDS ORDERED: FLOMAX ONE (09:43)
[2016-08-04 10:03] VITALS: BP 112/57
--- NOTE | 2016-08-04 12:54 | OPERATIVE NOTE ---
PROCEDURE DATE: 08/04/2016 SURGEON: Dr. Sreekanth Rodriges. PREOPERATIVE DIAGNOSIS: Right proximal ureteral stone. POSTOPERATIVE DIAGNOSIS: Right proximal ureteral stone. PROCEDURE PERFORMED: Right extracorporeal shockwave lithotripsy. ANESTHESIA: General via laryngeal mask. FINDINGS: An approximate 10 mm stone in the right proximal ureter. INDICATION FOR PROCEDURE: This 75-year-old male with multiple medical problems has a colostomy and ileostomy. He developed urosepsis with an obstructing right ureteral stone. He had a percutaneous nephrostomy tube placed. He presents for shockwave lithotripsy. DESCRIPTION OF PROCEDURE: After informed consent was obtained from the patient and him receiving IV antibiotics, he was taken to the main OR, placed in the supine position. General anesthesia via laryngeal mask was achieved. He was then placed in the proper position for right extracorporeal shockwave lithotripsy. The stone received 3000 shocks, starting at energy level 1 and ramping to energy level 9. At completion, the stone appeared well fragmented. He received 12.5 g of mannitol at the start. Total fluoroscopy time was 2 minutes 48 seconds. ESTIMATED BLOOD LOSS: Zero. He was taken to the recovery room in good condition.
== END 2016-08-04 10:06 | disposition home or self-care (01) ==
LOC: OPS 05:47
PROVIDERS: ATTEND Urology
DX: N20.1 Calculus of ureter (principal); N40.0 Benign prostatic hyperplasia without lower urinary tract symptoms; E11.9 Type 2 diabetes mellitus without complications; Z87.891 Personal history of nicotine dependence
CPT/HCPCS: J0690; J1100; J1580; J2150; J2405; J7120